=== PATIENT | female | born 1955 | race Caucasian/White ===

== ENCOUNTER 2017-09-21 10:52 | Outpatient (CLI) | payer BC | END 2017-09-21 10:53 | disposition home or self-care (01) | LOC: BICMAMMO 10:52 | PROVIDERS: ATTEND Family Medicine | DX: Z12.31 Encounter for screening mammogram for malignant neoplasm of breast (principal) | CPT/HCPCS: 77063; 77067 ==

== ENCOUNTER 2018-12-02 14:00 | Inpatient (IN) | payer BC ==
[2018-12-09 12:57] VITALS: BMI 35.2
[2018-12-20] MEDS ORDERED: Tranexamic Acid 1,000 MG/10 ML VIAL ONE ×2 (05:52→09:30)
[2018-12-20] MEDS ORDERED: Sodium Chloride 0.9% 100 ML ONE (05:52)
[2018-12-20] MEDS ORDERED: Vancomycin HCl 1.5 GM in Sodium Chloride 0.9% 250 ML 300 ML IVPB SCH ×2 (06:15→20:00)
[2018-12-20] MEDS ORDERED: Fentanyl 100 MCG/2 ML VIAL ONE (06:26)
[2018-12-20] MEDS ORDERED: Midazolam HCl 2 mg/2 ml Vial ONE (06:26)
[2018-12-20] MEDS ORDERED: Bupivacaine PF 0.5% 30 ML VIAL ONE (06:49)
[2018-12-20] MEDS ORDERED: HYDROcodone/Acetaminophen 10/325 mg Tablet PO PRN (07:06)
[2018-12-20] MEDS ORDERED: Promethazine HCl 25 MG/ML VIAL IM PRN ×3 (07:06→07:45)
[2018-12-20] MEDS ORDERED: Zolpidem Tartrate 5 MG TAB PO PRN ×2 (07:06→07:14)
[2018-12-20] MEDS ORDERED: Ketorolac Tromethamine 30 MG/ML VIAL IVP PRN (07:06)
[2018-12-20] MEDS ORDERED: Ondansetron PF 4 MG/2 ML Vial IVP PRN ×2 (07:06→07:14)
[2018-12-20] MEDS ORDERED: Fentanyl 100 MCG/2 ML VIAL IV PRN (07:06)
[2018-12-20] MEDS ORDERED: traMADol HCl 50 MG TAB PO PRN ×2 (07:06)
[2018-12-20] MEDS ORDERED: Ropivacaine HCl/PF 250 ML in Premix Bag 1 BAG NERVE BLCK SCH (07:06)
[2018-12-20] MEDS ORDERED: diphenhydrAMINE 25 MG CAP PO PRN (07:14)
[2018-12-20] MEDS ORDERED: Acetaminophen 325 MG TAB PO PRN (07:14)
[2018-12-20] MEDS ORDERED: Tranexamic Acid 1,000 MG in Sodium Chloride 0.9% 100 ML IVPB SCH (07:15)
[2018-12-20] MEDS ORDERED: methylPREDNISolone Acetate 40 mg/ml Vial ONE (07:23)
[2018-12-20] MEDS ORDERED: Lidocaine 1% (PF) 30 ML VIAL ONE (07:23)
[2018-12-20] MEDS ORDERED: Ondansetron HCl/PF 4 MG/2 ML Vial IVP PRN (07:45)
[2018-12-20] MEDS ORDERED: Promethazine HCl 25 MG/ML VIAL SLOW IVP PRN (07:45)
[2018-12-20] MEDS ORDERED: Scopolamine 1.5 mg/72 hour Patch ONE (08:38)
[2018-12-20] MEDS ORDERED: Non-Formulary Item 1 EACH (Multivit-Min/Iron/Folic/Lutein [Centrum Silver Women] 1 TAB) PO SCH (09:00)
--- NOTE | 2018-12-20 10:12 | OP ---
DATE OF PROCEDURE: 12/20/2018 PREOPERATIVE DIAGNOSIS: Bilateral knee arthritis, left worse than right. POSTOPERATIVE DIAGNOSIS: Bilateral knee arthritis, left worse than right. PROCEDURES PERFORMED: 1. Left total knee replacement using [employer] pinless navigation. 2. Right knee corticosteroid injection. MAINTENANCE DEPARTMENT MANAGER: Yuriy Castaneda PA-C. BLOOD LOSS: Minimal. COMPLICATIONS: None. ANESTHESIA: She had general anesthetic. She also had a block to the left leg. IMPLANTS: To the left knee include [employer] total knee system. We used a size 4 cruciate retaining femur. We used a size 3 primary tibial base plate. We used a 3 x 11 mm CS X3 bearing and asymmetric 29 x 9 X3 patella. DISPOSITION: She did go to recovery room in stable condition. INDICATIONS: This is a 63-year-old female, who has been dealing with bilateral knee arthritis for years. At this time, she has failed nonoperative treatment and wished to have the left knee replaced and while asleep, she wished to have the right knee injected. DESCRIPTION OF PROCEDURE: After all appropriate consent forms were explained and signed, she was taken back to the operative room and at this time was given general anesthetic. Once the level of anesthesia was appropriate, the right knee was cleaned off with alcohol and a mixture of 80 mg of Depo-Medrol and local was injected into the right knee without complication. Band-Aids were applied. After all appropriate consent forms were explained and signed, the patient was taken back to the operating room and at this time was given general anesthetic. Once the level of anesthesia was appropriate, a well-padded tourniquet was placed on the left leg, and the leg was then prepped and draped in standard surgical fashion. The limb was exsanguinated and tourniquet taken up to 300 mmHg. Midline incision was made with a 10 blade down through the skin and subcutaneous tissue. Bovie electrocautery was used to coagulate any brisk venous bleeding. A new blade was used to make a medial parapatellar arthrotomy. Small subperiosteal release was performed medially and excess fat pad was removed. The knee was flexed up to gain access to the femur. The femur was navigated and distal femoral resection was made. Epicondylar access was used to align our sizing jig and this was pinned in place. We sized our femur to be a 4. 4:1 cutting block was applied and pinned. Anterior and posterior chamfer cuts were then made. We navigated out our proximal tibia and made our proximal tibial resection. Spreaders were used to remove any posterior osteophytes off the back of the femur as well as remaining meniscal tissue. A long alignment diego was then used to achieve correct rotation of our tibial baseplate and a size 3 was chosen. This was pinned in place. We trialed the polyethylene and a 3 x 11 mm CS X3 polyethylene gave us full extension and good stability throughout range of motion. Two towel clips and a saw were used to cut our patella. Three lug nuts were drilled and 29 x 9 X3 patella was trialed which sat nicely in the trochlear groove. We then drilled our femur and punched our tibia. All components were removed. The knee was thoroughly irrigated and dried. Cement was mixed into the cement gun on the back table. Components were then placed. The knee was held out in full extension until the cement had dried. All excess bone cement was removed. Multiple #2 Vicryl stitches as well as a Quill were used to close our extensor mechanism. 0 Quill followed by a running Monoderm was then used to close the skin. Surgicel glue was then used on the skin. Once this had dried, soft tissue dressing was applied to the limb, tourniquet was let down, and the toes pinked up nicely. The patient was then awakened and taken to the recovery room in stable condition. All counts were correct at the end of the case. The patient did receive preoperative IV antibiotics. The patient was injected with Marcaine for postoperative pain relief. Job ID: [id number] [facility]
[2018-12-20] MEDS: Aspirin 81 mg Enteric Coated Tablet PO SCH ×2 (13:36→20:18)
[2018-12-20] MEDS: Calcium Carbonate 600 MG TAB PO SCH (13:36)
[2018-12-20] MEDS ORDERED: Ropivacaine 0.2% HCl/PF (40 MG/20 ML VIAL) ONE (15:24)
[2018-12-20] MEDS ORDERED: Bupivacaine HCl 0.5%/Epinephrine 1:200,000/PF 30 ml Vial ONE (15:24)
[2018-12-20] MEDS: Sodium Chloride 0.9% 1,000 ML IV SCH ×2 (15:44→17:23)
[2018-12-20] MEDS: CEFAZOLIN 2 GM in Premix Bag 1 BAG IVPB SCH ×2 (15:44→21:35)
[2018-12-20] MEDS: HYDROcodone/Acetaminophen 10/325 mg Tablet PO PRN ×2 (15:45→21:34)
[2018-12-20] MEDS ORDERED: PROPOFOL 200 MG/20 ML VIAL ONE (15:56)
[2018-12-20] MEDS ORDERED: Ketorolac Tromethamine 30 MG/ML VIAL ONE (15:56)
[2018-12-20] MEDS ORDERED: Lidocaine 1% PF 5 ML VIAL ONE (15:56)
[2018-12-20] MEDS ORDERED: Ondansetron PF 4 MG/2 ML Vial ONE (15:56)
[2018-12-20] MEDS ORDERED: ePHEDrine 50 MG/ML VIAL ONE (15:56)
--- NOTE | 2018-12-20 19:50 | CON ---
DATE OF CONSULTATION: REASON FOR CONSULTATION: Medical management. HISTORY OF PRESENT ILLNESS: Ms. Mendez is a pleasant 63-year-old woman, with a history of degenerative joint disease who is status post left total knee replacement done today by Dr. Min. The patient states she has no comorbidities except for obesity and arthritis. The patient states she is feeling well at the moment without any significant pain as she still has left lower extremity numbness from the nerve block. She does report having nausea and one episode of vomiting when she was first brought up to the floor, but is no longer feeling nauseated. She has been up on her feet to go to the bathroom and she did have a bowel movement and reports having regular stools. States she did not experience any lightheadedness when standing. Feeling well overall. At this present time, she is without any complaints and resting comfortably. REVIEW OF SYSTEMS: All other review of systems apart from those mentioned above in HPI are negative. No recent fevers, chills, or sweats. No chest pain, palpitations, or shortness of breath. No headaches or dizziness. All other review of systems are negative. PAST SURGICAL HISTORY: 1. Previous left knee arthroscopy. 2. Status post left knee replacement. PAST MEDICAL HISTORY: 1. Obesity. 2. Osteoarthritis. 3. Anxiety. SOCIAL HISTORY: The patient denies any tobacco use. Rare alcohol consumption. No illicit drug use. She is fully independent, normally mobilizes independently. FAMILY HISTORY: Noncontributory. PHYSICAL EXAMINATION: GENERAL: The patient appears well developed, well nourished, is in no acute distress. She is resting comfortably. VITAL SIGNS: HEENT: Normocephalic and atraumatic. Pupils are equal, round, and reactive to light. No scleral icterus. Oropharynx is clear. NECK: Supple. LUNGS: Clear to auscultation bilaterally without wheezes, rales, or rhonchi. CARDIAC: Regular rate and rhythm without audible murmurs, rubs, or gallops. ABDOMEN: Soft, nontender, nondistended. Normoactive bowel sounds present. EXTREMITIES: Mechanical SCDs in place. No significant lower extremity edema. Dressing in place to the left lower extremity. Pedal pulses equal and strong bilaterally. Sensation intact. NEUROLOGIC: Alert and oriented x3. No neuro deficits. SKIN: Warm and dry. LABORATORY DATA: Done on December 09, 2018. Full blood count unremarkable. Sodium 138, potassium 3.7, BUN 17, creatinine 0.75, GFR 78. Hemoglobin A1c 5.9. IMAGING: None. EKG normal sinus rhythm. IMPRESSION AND PLAN: Ms. Mendez is a very pleasant 63-year-old woman with obesity and osteoarthritis who has undergone a left total knee replacement today and without any significant pain at present given the nerve block is still in effect. The patient reports one episode of vomiting which has settled and she is no longer with complaints. She feels good at this present time. She has no other comorbidities requiring any intervention. She states her blood pressure is usually within normal range. She is on no major medications at home and only takes calcium as well as a multivitamin. Both have been reconciled. We will continue to follow this patient with you. Laboratory studies have been added on for the morning. Code status full. Surrogate decision maker is her , Remy Mendez. The patient's case was discussed with the attending who is aware of consultation. Job ID: [id number]
[2018-12-20] MEDS: Famotidine 20 MG TAB PO SCH (20:19)
[2018-12-21] MEDS: Sodium Chloride 0.9% 1,000 ML IV SCH ×3 (04:33→23:59)
[2018-12-21 05:15] LABS: #Eosinphils 0.1 thou/uL (0.0-0.7); #Monocytes 0.7 thou/uL (0.11-0.59); #Neutrophils 5.4 thou/uL (1.40-6.50); %Basophils 0.2 % (0.0-1.0); %Eosinophils 0.8 % (0.0-10.0); %Lymphocytes 24.1 % (21.0-51.0); %Monocytes 8.4 % (0.0-10.0); %Neutrophils 66.4 % (42.0-75.0); Hemoglobin 10.7 g/dL (12.0-16.0); Mean Corpuscular HGB CONC 33.1 g/dL (32.0-36.0); Mean Corpuscular Hemoglobin 29.7 pg (27.0-31.0); Mean Corpuscular Volume 89.5 fL (78.0-98.0); Mean Platelet Volume 9.3 fL (7.4-10.4); Platelet Count 173 thou/uL (130-400); RBC Distribution Width 11.6 % (11.5-14.5); Red Blood Cell (RBC) Count 3.61 mill/uL (4.20-5.40); White Blood Cell (WBC) Count 8.1 thou/uL (4.8-10.8)
[2018-12-21 05:36] LABS: Anion Gap 10 mmol/L (10-20); BUN (Urea Nitrogen) 10 mg/dL (9.8-20.1); Calc. Creatinine Clearance 117 mL/min (70-130); Carbon Dioxide 23 mmol/L (23-31); Chloride 107 mmol/L (98-107); Estimated GFR-MDRD 74; Glucose 123 mg/dL (80-115); Potassium 3.9 mmol/L (3.5-5.1); Sodium 136 mmol/L (136-145)
[2018-12-21] MEDS: HYDROcodone/Acetaminophen 10/325 mg Tablet PO PRN ×3 (05:43→19:21)
[2018-12-21] MEDS: Famotidine 20 MG TAB PO SCH ×2 (08:22→20:28)
[2018-12-21] MEDS: Senokot S 8.6-50 MG TAB PO SCH ×2 (08:22→20:28)
[2018-12-21] MEDS: Ferrous Gluconate 324 MG TAB PO SCH ×2 (08:23→17:00)
[2018-12-21] MEDS: Multivitamin W/ Minerals 1 TAB PO SCH (08:23)
[2018-12-21] MEDS: Calcium Carbonate 600 MG TAB PO SCH (08:23)
[2018-12-21] MEDS: Aspirin 81 mg Enteric Coated Tablet PO SCH ×2 (08:23→20:27)
[2018-12-21] MEDS ORDERED: FLU VACC QS2019-20(6MOS UP)/PF 60 MCG/0.5 ML SYRINGE IM ONE (09:00)
[2018-12-21 20:05] LABS: Iron 12 ug/dL (50-170); Iron Binding Capacity, Total 301 mcg/dL (265-497)
--- NOTE | 2018-12-21 23:47 | PDOC.HOSPP ---
- Subjective Encounter Date: 12/21/18 Encounter Time: 16:00 Subjective: The patient is doing well. She states her left knee pain is controlled. She states tylenol helps her pain. She states she was started on iron and was wondering if she was deficient. She had normal colonoscopy a few years ago - Objective Vital Signs & Weight: Vital Signs (12 hours) Temp Pulse Resp BP Pulse Ox 12/21/18 20:06 94 L 12/21/18 20:00 98.3 F 88 16 133/72 92 L 12/21/18 15:54 98.7 F 83 16 109/56 L 94 L Weight Admit Weight 225 lb Weight 225 lb I&O: 12/20/18 12/21/18 12/22/18 06:59 06:59 06:59 Intake Total 2815 1262 Output Total 1400 Balance 1415 1262 Result Diagrams: 12/21/18 04:39 12/21/18 04:39 Hospitalist ROS - Review of Systems Constitutional: denies: fever, chills - Medication Medications: Active Medications Generic Name Dose Route Start Last Admin Trade Name Freq PRN Reason Stop Dose Admin Hydrocodone Bitart/Acetaminophen 2 tab 12/20/18 07:06 12/21/18 19:21 [place] 10/325 PO 2 tab Q4H PRN Administration PAIN (4-6) Aspirin 81 mg 12/20/18 09:00 12/21/18 20:27 Ecotrin PO 81 mg BID DAYO Administration Calcium Carbonate 600 mg 12/20/18 09:00 12/21/18 08:23 Caltrate PO 600 mg DAILY DAYO Administration Famotidine 20 mg 12/20/18 21:00 12/21/18 20:28 Pepcid PO 20 mg BID DAYO Administration Ferrous Gluconate 324 mg 12/21/18 08:00 12/21/18 17:00 Fergon PO 324 mg BID-WM DAYO Administration Sodium Chloride 1,000 mls @ 100 mls/hr 12/20/18 07:15 12/21/18 14:04 Normal Saline 0.9% IV Not Given .Q10H DAYO Iron/Minerals/Multivitamins 1 tab 12/21/18 09:00 12/21/18 08:23 Theragran M PO 1 tab DAILY DAYO Administration Ketorolac Tromethamine 15 mg 12/20/18 07:06 12/21/18 06:31 Toradol IVP 12/23/18 07:07 15 mg Q6H PRN Administration Moderate Pain (4-6) Ondansetron HCl 4 mg 12/20/18 07:14 12/21/18 08:19 Zofran IVP 4 mg Q6H PRN Administration Nausea/Vomiting Promethazine HCl 12.5 mg 12/20/18 07:14 12/21/18 10:18 Phenergan IM 12.5 mg Q4H PRN Administration Nausea/Vomiting Senna/Docusate Sodium 2 tab 12/21/18 09:00 12/21/18 20:28 Senokot S PO 2 tab BID DAYO Administration Sodium Chloride 10 ml 12/20/18 09:00 12/21/18 20:29 Flush - Normal Saline IVF 10 ml Q12HR DAYO Administration - Exam General Appearance: NAD, awake alert, ill appearing Eye: PERRL, anicteric sclera, scleral icterus ENT: normocephalic atraumatic, no oropharyngeal lesions, dry oral mucosa Neck: supple, symmetric, no JVD, no thyromegaly Heart: RRR, no murmur, no gallops, no rubs Respiratory: CTAB, no wheezes, no rales, no ronchi Gastrointestinal: soft, non-tender, non-distended, normal bowel sounds Extremities: no cyanosis, no clubbing, no edema Skin: normal turgor, no lesions, no rashes Neurological: cranial nerve grossly intact, normal sensation to touch, no focal deficits, no new deficit Musculoskeletal: normal tone, normal strength Musculoskeletal - other findings: left knee replacement Psychiatric: normal affect, normal behavior, A&O x 3, oriented to person Hosp A/P - Plan This is 63 year old male who is postop left knee replacement, consulted for medical management S/p left knee replacement - pain management per ortho Anemia with possible iron deficiency - B12 and folate normal, iron saturation is very low, therefore okay to continue iron supplementation - trend CBC tomorrow Code status: full code
[2018-12-22] MEDS: HYDROcodone/Acetaminophen 10/325 mg Tablet PO PRN ×3 (00:40→11:16)
[2018-12-22 05:16] LABS: Hemoglobin 11.2 g/dL (12.0-16.0); Mean Corpuscular HGB CONC 34.1 g/dL (32.0-36.0); Mean Corpuscular Hemoglobin 30.4 pg (27.0-31.0); Mean Corpuscular Volume 89.2 fL (78.0-98.0); Mean Platelet Volume 9.1 fL (7.4-10.4); Platelet Count 175 thou/uL (130-400); RBC Distribution Width 11.5 % (11.5-14.5); Red Blood Cell (RBC) Count 3.69 mill/uL (4.20-5.40); White Blood Cell (WBC) Count 10.4 thou/uL (4.8-10.8)
[2018-12-22] MEDS: Multivitamin W/ Minerals 1 TAB PO SCH (08:48)
[2018-12-22] MEDS: Calcium Carbonate 600 MG TAB PO SCH (08:48)
[2018-12-22] MEDS: Ferrous Gluconate 324 MG TAB PO SCH (08:48)
[2018-12-22] MEDS: Aspirin 81 mg Enteric Coated Tablet PO SCH (08:48)
[2018-12-22] MEDS: Famotidine 20 MG TAB PO SCH (08:49)
[2018-12-22] MEDS: Senokot S 8.6-50 MG TAB PO SCH (08:49)
[2018-12-22] MEDS: Sodium Chloride 0.9% 1,000 ML IV SCH (11:18)
[2018-12-22 12:44] VITALS: BP 122/68; TEMP 98.7
== END 2018-12-22 14:00 | disposition home or self-care (01) | DRG 470 ==
LOC: SJJU 12-20 05:32 → SURG B 12-20 09:51
PROVIDERS: ADMIT Orthopaedic Surgery; ATTEND Orthopaedic Surgery
PROC: 0SRD0J9 Replacement of Left Knee Joint with Synthetic Substitute, Cemented, Open Approach (ICD-10-PCS; principal; 2018-12-20)
PROC: 3E0U33Z Introduction of Anti-inflammatory into Joints, Percutaneous Approach (ICD-10-PCS; 2018-12-20)
PROC: 3E0U3BZ Introduction of Anesthetic Agent into Joints, Percutaneous Approach (ICD-10-PCS; 2018-12-20)
PROC: 3E02340 Introduction of Influenza Vaccine into Muscle, Percutaneous Approach (ICD-10-PCS; 2018-12-21)
DX: M17.0 Bilateral primary osteoarthritis of knee (principal); E66.9 Obesity, unspecified; F41.9 Anxiety disorder, unspecified; D50.9 Iron deficiency anemia, unspecified; Z68.35 Body mass index [BMI] 35.0-35.9, adult; Z79.899 Other long term (current) drug therapy; Z23 Encounter for immunization
CPT/HCPCS: 36415; 80048; 82607; 82728; 82746; 83540; 83550; 85027; 90471; 90686; C1713; C1776; G0008; J0690; J1030; J1885; J2001; J2250; J2405; J2550; J3010; J3370; J3490; J7050; S0020

== ENCOUNTER 2018-12-09 12:37 | Outpatient (CLI) | payer BC ==
[2018-12-09 14:37] LABS: #Basophils 0.1 thou/uL (0.0-0.2); #Eosinphils 0.1 thou/uL (0.0-0.7); #Lymphocytes 2.8 thou/uL (1.20-3.40); #Monocytes 0.5 thou/uL (0.11-0.59); #Neutrophils 2.6 thou/uL (1.40-6.50); %Basophils 1.4 % (0.0-1.0); %Eosinophils 1.5 % (0.0-10.0); %Lymphocytes 45.8 % (21.0-51.0); %Monocytes 8.2 % (0.0-10.0); %Neutrophils 43.1 % (42.0-75.0); Hemoglobin 14.2 g/dL (12.0-16.0); Mean Corpuscular HGB CONC 33.9 g/dL (32.0-36.0); Mean Corpuscular Hemoglobin 30.2 pg (27.0-31.0); Mean Corpuscular Volume 89.1 fL (78.0-98.0); Mean Platelet Volume 9.5 fL (7.4-10.4); Platelet Count 226 thou/uL (130-400); RBC Distribution Width 11.8 % (11.5-14.5); White Blood Cell (WBC) Count 6.1 thou/uL (4.8-10.8)
[2018-12-09 14:42] LABS: Prothrombin Time 13.3 SEC (12.0-14.7)
[2018-12-09 14:58] LABS: Anion Gap 13 mmol/L (10-20); BUN (Urea Nitrogen) 17 mg/dL (9.8-20.1); Calc. Creatinine Clearance 0 mL/min (70-130); Calcium 10.1 mg/dL (7.8-10.44); Carbon Dioxide 25 mmol/L (23-31); Chloride 104 mmol/L (98-107); Estimated GFR-MDRD 78; Glucose 88 mg/dL (80-115); Potassium 3.7 mmol/L (3.5-5.1); Sodium 138 mmol/L (136-145)
[2018-12-09 15:09] LABS: Bacteria/HPF None Seen HPF (None Seen); Bilirubin Negative (Negative); Blood, Urine Negative (Negative); Clarity Clear (Clear); Glucose, Urine (Dipstick) Normal (Negative); Leukocyte Negative Leu/uL (Negative); Nitrite Negative (Negative); Protein, Urine (Dipstick) Negative (Neg-Trace); RBC/HPF 0-3 HPF (0-3); Squamous Epithelial 0-3 HPF (0-3); Urobilinogen Normal mg/dL (Less than 2); WBC/HPF 0-3 HPF (0-3)
== END 2018-12-09 12:38 | disposition home or self-care (01) ==
LOC: LABBT 12:37
PROVIDERS: ATTEND Orthopaedic Surgery
DX: Z01.818 Encounter for other preprocedural examination (principal); M17.12 Unilateral primary osteoarthritis, left knee
CPT/HCPCS: 80048; 81001; 85025; 85610; 87081; 93005; 93010

== ENCOUNTER 2021-03-11 13:19 | Outpatient (CLI) | payer MEDICARE | END 2021-03-11 13:20 | disposition home or self-care (01) | LOC: BICMAMMO 13:19 | PROVIDERS: ATTEND Family Medicine | DX: Z12.31 Encounter for screening mammogram for malignant neoplasm of breast (principal) | CPT/HCPCS: 77063; 77067 ==

== ENCOUNTER 2022-04-22 11:09 | Outpatient (CLI) | payer MEDICARE, OTHER | END 2022-04-22 11:10 | disposition home or self-care (01) | LOC: BICMAMMO 11:09 | PROVIDERS: ATTEND Family Medicine | DX: Z12.31 Encounter for screening mammogram for malignant neoplasm of breast (principal); N64.89 Other specified disorders of breast | CPT/HCPCS: 77063; 77067 ==